=== PATIENT | male | born 1950 | race Caucasian/White ===

== ENCOUNTER 2020-10-30 12:39 | Emergency (ER) | payer MEDICARE, BC ==
[~2020-10-30 12:39] MED LIST: ANTIVERT 25MG T25 MG PO; ZOFRAN4 MG PO
[2020-10-30 13:55] LABS: HEMOGLOBIN 14.8 gm/dl (14.0-17.5); RED BLOOD COUNT 5.11 M/UL (4.20-5.50); WHITE BLOOD COUNT 6.2 K/UL (4.5-11.0)
[2020-10-30 14:14] LABS: BUN/CREATININE RATIO 25 (0-10)
[2020-10-30] MEDS ORDERED: LEVOFLOXACIN500 MG PO (16:18)
== END 2020-10-30 16:31 | disposition home or self-care (01) ==
LOC: ER1 12:39
PROVIDERS: Physician Assistant
DX: J01.00 Acute maxillary sinusitis, unspecified (principal); R00.2 Palpitations; I10 Essential (primary) hypertension; E11.9 Type 2 diabetes mellitus without complications; Z20.822 Contact with and (suspected) exposure to COVID-19
CPT/HCPCS: 70450; 71045; 80053; 82550; 82553; 83874; 84484; 85025; 93005; 99284; U0002